=== PATIENT | male | born 1970 | race African-American/Black ===

== ENCOUNTER 2017-08-18 21:44 | Emergency (ER) | payer MEDICAID ==
[~2017-08-18] VITALS: Ht 180.3 cm; Wt 80.8 kg
[~2017-08-18 21:44] MED LIST: CYCL-1 PO; IBUP-1986 PO; PANT-47 PO
[2017-08-18] MEDS ORDERED: meclizine 12.5mg tablet PO ONE (22:15)
[2017-08-18] MEDS ORDERED: normal saline 1000ML IV soln IVB ONE (22:15)
[2017-08-18] MEDS ORDERED: ondansetron/PF 4mg/2ml inj IV ONE (22:15)
[2017-08-18] MEDS ORDERED: ibuprofen tablet 400 MG TABLET PO ONE (22:40)
[2017-08-18 22:53] VITALS: BP 138/70
== END 2017-08-18 22:59 | disposition home or self-care (01) ==
LOC: ER 21:46
DX: R42 Dizziness and giddiness (principal); R06.02 Shortness of breath; G89.29 Other chronic pain; M54.9 Dorsalgia, unspecified; R51 Headache
CPT/HCPCS: 96374; 99284; J2405; J7030; J8597

== ENCOUNTER 2018-10-15 20:11 | Emergency (ER) | payer MEDICAID ==
[~2018-10-15] VITALS: Ht 180.3 cm; Wt 76.0 kg
[~2018-10-15 20:11] MED LIST changes: +CLOB15OI3 TOP; -CYCL-1 PO; -IBUP-1986 PO; +NAPR-1154 PO; -PANT-47 PO
[2018-10-15] MEDS ORDERED: HYDROmorphone 1 mg/ml syringe IV ONE (20:20)
[2018-10-15] MEDS ORDERED: ceFAZolin 1GM/D5W- ADD-VANTAGE 50 ML IV ONE (20:20)
[2018-10-15] MEDS: HYDROcodone/acetaminophen 10/325mg tab PO ONE ×2 (20:36→20:52)
[2018-10-15] MEDS ORDERED: LIDOcaine 1% w/epiNEPHrine 1:200,000 30ml vial IM ONE (20:40)
[2018-10-15 20:53] VITALS: BP 149/83
--- NOTE | 2018-10-15 21:10 | NUR ---
Dr. Parisi at bedside for suture repair.
--- NOTE | 2018-10-15 21:46 | NUR ---
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 WILL DC PT WHEN FINISHED.
[2018-10-15] MEDS ORDERED: HYDR-4353 PO (21:51)
[2018-10-15] MEDS ORDERED: CEPH500C5 PO (21:51)
== END 2018-10-15 21:58 | disposition home or self-care (01) ==
LOC: ER 20:11
DX: S92.411A Displaced fracture of proximal phalanx of right great toe, initial encounter for closed fracture (principal); S91.111A Laceration without foreign body of right great toe without damage to nail, initial encounter; G89.29 Other chronic pain; L40.9 Psoriasis, unspecified; Z79.899 Other long term (current) drug therapy; W27.0XXA Contact with workbench tool, initial encounter; Y93.89 Activity, other specified; Y92.89 Other specified places as the place of occurrence of the external cause; Y99.8 Other external cause status
CPT/HCPCS: 12002; 73630; 96365; 96375; 99283; J0690; J1170; J3490

== ENCOUNTER 2020-02-22 08:59 | Emergency (ER) | payer MEDICAID ==
[~2020-02-22] VITALS: Ht 180.3 cm; Wt 83.0 kg
[2020-02-22 09:07] VITALS: BP 163/91
[2020-02-22] MEDS ORDERED: CLOB30CR12 TOP (09:15)
== END 2020-02-22 09:30 | disposition home or self-care (01) ==
LOC: ER 09:01
DX: L40.9 Psoriasis, unspecified (principal); Z76.0 Encounter for issue of repeat prescription; G89.29 Other chronic pain; Z98.890 Other specified postprocedural states; Z79.899 Other long term (current) drug therapy
CPT/HCPCS: 99281